=== PATIENT | male | born 1950 | race Caucasian/White ===

== ENCOUNTER 2019-04-03 10:25 | Inpatient (IN) | payer OTHER, SELFPAY ==
[2019-04-03] MEDS ORDERED: ASPIRIN 81 MG CHEWABLE TABLET ONE (10:45)
[2019-04-03 10:58] LABS: Absolute Lymphocytes (CBC) 2.1 K/uL (0.7-4.9); Basophils % 1.4 % (0-1.3); Hematocrit 45.3 % (39.6-49.0); Lymphocytes % 22.3 % (15.3-44.8); MPV 8.4 fL (7.6-11.3); RBC Red Blood Cell Count 5.15 M/uL (4.33-5.43)
[2019-04-03 11:48] LABS: Albumin 3.2 g/dL (3.4-5.0); Bilirubin Direct 0.1 mg/dL (0-0.2); Bilirubin Total 0.4 mg/dL (0.2-1.0); Potassium 4.2 mmol/L (3.5-5.1); Troponin (Emerg Dept Use Only) 0.09 ng/mL (0.0-0.045)
--- NOTE | 2019-04-03 12:05 | EKG ---
Test Date: 2019-04-03 Test Time: 10:33:18 Foundry Superintendant: ISMAEL MEASUREMENT RESULTS: Intervals: Rate: 75 LA: 224 QRSD: 90 QT: 408 QTc: 455 [place]: P: 31 LA: 224 QRS: -22 T: -6 INTERPRETIVE STATEMENTS: Sinus rhythm with sinus arrhythmia with 1st degree AV block Minimal voltage criteria for LVH, may be normal variant Borderline ECG No previous ECG available for comparison Electronically Signed On 04-03-19 12:04:24 JAVA APPLICATION DEVELOPER by Mason Hawkins
--- NOTE | 2019-04-03 12:08 | RAD REPORT ---
EXAM DESCRIPTION: Marisel Single View04/03/2019 11:17 am CLINICAL HISTORY: Chest pain COMPARISON: none FINDINGS: The lungs appear clear of acute infiltrate. The heart is borderline enlarged IMPRESSION: No acute abnormalities displayed
--- NOTE | 2019-04-03 12:50 | ER ---
Nurse's Notes [facility] Name: Fabio Castellanos Age: 69 yrs Sex: Male : 1950 Arrival Date: 04/03/2019 Time: 10:26 Bed 6 Private MD: Alen Tatum H Diagnosis: Chest pain, unspecified;Non-ST elevation (NSTEMI) myocardial infarction Presentation: 04/03 10:34 Presenting complaint: Patient states: midsternal chest pain that feels like tightness iw and cramping and dull pain in left arm started this morning, had similar episode the other day but not as bad as this one, no cardiac history, denies nausea, felt light headed. Transition of care: patient was not received from another setting of care. Onset of symptoms was April 03, 2019. Risk Assessment: Do you want to hurt yourself or someone else? Patient reports no desire to harm self or others. Initial Sepsis Screen: Does the patient meet any 2 criteria? No. Patient's initial sepsis screen is negative. Does the patient have a suspected source of infection? No. Patient's initial sepsis screen is negative. Care prior to arrival: None. 10:34 Method Of Arrival: Wheelchair iw 10:34 Acuity: DOMI 2 iw Historical: - Allergies: 10:36 No Known Allergies; iw - Home Meds: 10:36 unknown BP med [Active]; Glimepiride Oral [Active]; iw 12:47 hydrochlorothiazide 25 mg Oral tab 1 tab once daily [Active]; metformin 500 mg Oral tab em [Active]; - PMHx: 10:36 Hypertension; Diabetes - NIDDM; iw - PSHx: 10:36 left arm; iw - Immunization history:: Adult Immunizations. - Coronavirus screen:: The patient has NOT traveled to [place], [place], or [place] in the past 14 days. Proceed with normal triage process as indicated. - Social history:: Smoking status: Patient/guardian denies using tobacco. - Family history:: not pertinent. - Ebola Screening: : Patient negative for fever greater than or equal to 101.5 degrees Fahrenheit, and additional compatible Ebola Virus Disease symptoms Patient denies exposure to infectious person Patient denies travel to an Ebola-affected area in the 21 days before illness onset No symptoms or risks identified at this time. - Hospitalizations: : No recent hospitalization is reported. Screenin:33 Abuse screen: Denies threats or abuse. Nutritional screening: No deficits noted. em Tuberculosis screening: No symptoms or risk factors identified. Fall Risk None identified. Assessment: 10:33 General: Appears in no apparent distress. comfortable, Behavior is calm, cooperative. em Pain: Complains of pain in chest Pain radiates to left arm Pain began 2-3 days ago. and this morning at 0630. Neuro: Level of Consciousness is awake, alert, obeys commands, Oriented to person, place, time, situation, Appropriate for age. Cardiovascular: Denies diaphoresis, lightheadedness, shortness of breath, Capillary refill < 3 seconds Patient's skin is warm and dry. Rhythm is sinus rhythm. Respiratory: Airway is patent Respiratory effort is even, unlabored, Respiratory pattern is regular, symmetrical. GI: Patient currently denies nausea, vomiting. Derm: Skin is intact, is healthy with good turgor, Skin is pink, warm \T\ dry. Musculoskeletal: Capillary refill < 3 seconds, Range of motion: intact in all extremities. 11:30 Reassessment: Patient appears in no apparent distress at this time. Patient and/or em family updated on plan of care and expected duration. Pain level reassessed. Patient is alert, oriented x 3, equal unlabored respirations, skin warm/dry/pink. 12:29 Reassessment: Patient appears in no apparent distress at this time. Patient and/or em family updated on plan of care and expected duration. Pain level reassessed. Patient is alert, oriented x 3, equal unlabored respirations, skin warm/dry/pink. Patient states feeling better. 12:44 Reassessment: called [facility] pharmacy and spoke with Ali to get pt medication list. em 13:30 Reassessment: Patient appears in no apparent distress at this time. Patient and/or em family updated on plan of care and expected duration. Pain level reassessed. Patient is alert, oriented x 3, equal unlabored respirations, skin warm/dry/pink. Vital Signs: 10:38 BP 194 / 93; Pulse 77; Resp 18 S; Pulse Ox 97% on R/A; iw 11:01 BP 173 / 86; Pulse 67; Resp 18; Pulse Ox 99% on R/A; em 12:29 BP 166 / 80; Pulse 66; Resp 18; Pulse Ox 99% on R/A; em 14:00 BP 170 / 82; Pulse 71; Resp 18; Pulse Ox 99% on R/A; em ED Course: 10:26 Patient arrived in ED. mr 10:26 Rozina TatumStanislavAlex is Private Physician. mr 10:28 Neil Rios, DANIEL is Primary Nurse. em 10:30 Alfredito Green MD is Attending Physician. rn 10:33 EKG done, by ED staff, reviewed by Alfredito Green MD. em 10:33 Patient has correct armband on for positive identification. Placed in gown. Bed in low em position. Call light in reach. Side rails up X2. 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 Pulse ox on. NIBP on. 10:36 Triage completed. iw 10:36 Patient maintains SpO2 saturation greater than 95% on room air. em 10:38 Arm band placed on. iw 10:53 Initial lab(s) drawn, by me, sent to lab. Inserted saline lock: 20 gauge in left em antecubital area, using aseptic technique. Blood collected. 11:14 Lab(s) recollected, by me, sent to lab. 3 12:48 Luana Jimenez MD is Hospitalizing Provider. rn 14:21 No provider procedures requiring assistance completed. Patient admitted, IV remains in ph place. Administered Medications: 11:05 Drug: Aspirin Chewable Tablet 324 mg Route: PO; em 11:13 Follow up: Response: No adverse reaction em Outcome: 12:48 Decision to Hospitalize by Provider. rn 14:33 Admitted to Tele accompanied by tech, via wheelchair, room 423, with chart, Report em called to DANIEL Craven 14:33 Condition: good 14:33 Instructed on the need for admit, Demonstrated understanding of instructions. 14:34 Patient left the ED. ph Signatures: Shey Escalante mr Neil Rios, DANIEL SANCHEZ Tosin Liang RN RN Alfredito Green MD MD rn Hall, Patricia, RN RN Shefali Jones count includes the [facility]
--- NOTE | 2019-04-03 12:52 | EDPHYS ---
Physician Documentation [facility] Name: Fabio Castellanos Age: 69 yrs Sex: Male : 1950 Arrival Date: 04/03/2019 Time: 10:26 Bed 6 Private MD: Alen Tatum H ED Physician Alfredito Green HPI: 04/03 11:36 This 69 yrs old Male presents to ER via Wheelchair with complaints of Chest rn Pain. 11:36 The patient or guardian reports chest pain that is located primarily in the substernal rn area. Onset: today. The pain radiates to the left arm. The chest pain is described as aching, dull. Duration: The patient or guardian reports a single episode. Modifying factors: The symptoms are alleviated by nothing. the symptoms are aggravated by exertion. Severity of pain: At its worst the pain was moderate in the emergency department the pain has improved. The patient has experienced a previous episode. Reports chest pain, began a few hours prior to arrival, no trauma, no fever/cough, + radiates to left arm. No nausea/vomiting/diaphoresis. No previous KS or stress test. Had similar but shorter lasting pain 2 days ago.. Historical: - Allergies: 10:36 No Known Allergies; iw - Home Meds: 10:36 unknown BP med [Active]; Glimepiride Oral [Active]; iw 12:47 hydrochlorothiazide 25 mg Oral tab 1 tab once daily [Active]; metformin 500 mg Oral tab em [Active]; - PMHx: 10:36 Hypertension; Diabetes - NIDDM; iw - PSHx: 10:36 left arm; iw - Immunization history:: Adult Immunizations. - Coronavirus screen:: The patient has NOT traveled to [place], [place], or [place] in the past 14 days. Proceed with normal triage process as indicated. - Social history:: Smoking status: Patient/guardian denies using tobacco. - Family history:: not pertinent. - Ebola Screening: : Patient negative for fever greater than or equal to 101.5 degrees Fahrenheit, and additional compatible Ebola Virus Disease symptoms Patient denies exposure to infectious person Patient denies travel to an Ebola-affected area in the 21 days before illness onset No symptoms or risks identified at this time. - Hospitalizations: : No recent hospitalization is reported. ROS: 11:36 Constitutional: Negative for fever, chills, and weight loss, Eyes: Negative for injury, rn pain, redness, and discharge, Neck: Negative for injury, pain, and swelling, Cardiovascular: Negative for palpitations, and edema, Respiratory: Negative for shortness of breath, cough, wheezing, and pleuritic chest pain, Abdomen/GI: Negative for abdominal pain, nausea, vomiting, diarrhea, and constipation, MS/Extremity: Negative for injury and deformity, Skin: Negative for injury, rash, and discoloration, Neuro: Negative for headache, weakness, numbness, tingling, and seizure. Exam: 10:39 ECG was reviewed by the Attending Physician. rn 11:36 Constitutional: This is a well developed, well nourished patient who is awake, alert, rn and in no acute distress. Head/Face: Normocephalic, atraumatic. ENT: MMM Cardiovascular: Regular rate and rhythm. No pulse deficits. Respiratory: Clear bilateral breath sounds. No increased work of breathing, no retractions or nasal flaring. Abdomen/GI: soft, non-tender Skin: Warm, dry MS/ Extremity: Pulses equal, no cyanosis. Neurovascular intact. Full, normal range of motion. Equal circumference. Neuro: Awake and alert, GCS 15, oriented to person, place, time, and situation. Cranial nerves II-XII grossly intact. Motor strength 5/5 in all extremities. Sensory grossly intact. Vital Signs: 10:38 BP 194 / 93; Pulse 77; Resp 18 S; Pulse Ox 97% on R/A; iw 11:01 BP 173 / 86; Pulse 67; Resp 18; Pulse Ox 99% on R/A; em 12:29 BP 166 / 80; Pulse 66; Resp 18; Pulse Ox 99% on R/A; em 14:00 BP 170 / 82; Pulse 71; Resp 18; Pulse Ox 99% on R/A; em MDM: 10:30 Patient medically screened. rn 12:29 Differential diagnosis: acute myocardial infarction, coronary artery disease rn costochondritis, pleurisy, stable angina, unstable angina. The patient was given aspirin in the Emergency Department. Data reviewed: vital signs, nurses notes, lab test result(s), EKG, radiologic studies, plain films, and as a result, I will admit patient. 12:38 Counseling: I had a detailed discussion with the patient and/or guardian regarding: the rn historical points, exam findings, and any diagnostic results supporting the discharge/admit diagnosis, lab results, radiology results, the need for further work-up and treatment in the hospital. Response to treatment: the patient's symptoms have markedly improved after treatment, the patient's condition has returned to base line, the patient is now symptom free, and as a result, I will admit patient. Admission orders: after a detailed discussion of the patient's condition and case, the admit orders are written by me. ED course: Pt pain free, trop mild elevated, will admit for NSTEMI.. 12:47 ED course: Trop mild elevated, will admit to Salma Jimenez for cardiology consultation and rn cath.. 04/03 10:39 Order name: Basic Metabolic Panel rn 04/03 10:39 Order name: CBC with Diff rn 04/03 10:39 Order name: LFT's rn 04/03 10:39 Order name: NT PRO-BNP rn 04/03 10:39 Order name: Troponin (emerg Dept Use Only) rn 04/03 11:05 Order name: CBC with Automated Diff; Complete Time: 12:04 EDMS 04/03 10:39 Order name: XRAY Chest (1 view) rn 04/03 10:39 Order name: EKG; Complete Time: 10:40 rn 04/03 10:39 Order name: Cardiac monitoring; Complete Time: 10:45 rn 04/03 11:49 Order name: Basic Metabolic Panel; Complete Time: 12:04 EDMS 04/03 11:49 Order name: Liver (Hepatic) Function; Complete Time: 12:04 EDMS 04/03 11:49 Order name: Troponin (Emerg Dept Use Only); Complete Time: 12:04 EDMS 04/03 11:49 Order name: NT PRO-BNP; Complete Time: 12:04 EDMS 04/03 10:39 Order name: EKG - Nurse/Tech; Complete Time: 10:45 rn 04/03 10:39 Order name: IV Saline Lock; Complete Time: 11:13 rn 04/03 10:39 Order name: Labs collected and sent; Complete Time: 10:45 rn 04/03 10:39 Order name: O2 Per Protocol; Complete Time: 10:40 rn 04/03 10:39 Order name: O2 Sat Monitoring; Complete Time: 10:40 rn 04/03 11:10 Order name: Labs - recollect needed: chemistry hemolyzed; Complete Time: 11:17 em1 EC:39 Rate is 75 beats/min. Rhythm is regular. QRS [place] is Normal. CA interval is normal. QRS rn interval is normal. QT interval is normal. No Q waves. T waves are Normal. No ST changes noted. Clinical impression: NSR w/ Non-specific ST/T Changes and 1st degree heart block. Interpreted by me. Reviewed by me. Administered Medications: 11:05 Drug: Aspirin Chewable Tablet 324 mg Route: PO; em 11:13 Follow up: Response: No adverse reaction em Disposition: 04/03/19 12:48 Hospitalization ordered by Luana Jimenez for Inpatient Admission. Preliminary diagnosis are Chest pain, unspecified, Non-ST elevation (NSTEMI) myocardial infarction. - Bed requested for Telemetry/MedSurg (Inpatient). - Status is Inpatient Admission. ph - Condition is Stable. - Problem is new. - Symptoms have improved. Signatures: Dispatcher [employer] EDNeil Spence RN RN em Tosin Liang RN RN iw Alfredito Green MD MD rn Martinez, Eric em1 Yesica Peterson RN RN ph Corrections: (The following items were deleted from the chart) 13:56 12:48 Hospitalization Ordered by Luana Jimenez MD for Inpatient Admission. Preliminary em1 diagnosis is Chest pain, unspecified; Non-ST elevation (NSTEMI) myocardial infarction. Bed requested for Telemetry/MedSurg (Inpatient). Status is Inpatient Admission. Condition is Stable. Problem is new. Symptoms have improved. rn 14:34 13:56 04/03/2019 12:48 Hospitalization Ordered by Luana Jimenez MD for Inpatient ph Admission. Preliminary diagnosis is Chest pain, unspecified; Non-ST elevation (NSTEMI) myocardial infarction. Bed requested for Telemetry/MedSurg (Inpatient). Status is Inpatient Admission. Condition is Stable. Problem is new. Symptoms have improved. em1
[2019-04-03] MEDS ORDERED: NITROGLYCERIN 0.4 MG/TAB SL PRN (14:18)
[2019-04-03] MEDS ORDERED: ACETAMINOPHEN 500 MG TAB PO PRN (14:18)
[2019-04-03] MEDS ORDERED: MORPHINE 2 MG/ML SYR IV PRN (14:18)
[2019-04-03 14:39] VITALS: BMI 35.3
[2019-04-03] MEDS ORDERED: LORazepam 2 MG/ML VIAL IV PRN (14:44)
[2019-04-03] MEDS: INSULIN -REGULAR HUMAN 50 UNIT/0.5 ML ML SQ SCH ×2 (15:36→21:00)
[2019-04-03] MEDS: METOPROLOL TAR 25 MG TAB PO SCH (21:35)
[2019-04-03] MEDS: ATORVASTATIN 80 MG TAB PO SCH (21:36)
--- NOTE | 2019-04-03 21:54 | CON ---
History Of Present Illness: A 69-year-old man. Mr. Castellanos started having chest pain today. He act ually had one other episode last week, but the 1 today was more alarming and brought him to the emerg ency room where he has evidence of myocardial infarction to enzymes. There are no EKG changes and hi s pain went away when he received aspirin, oxygen, and nitroglycerin in the emergency room. The millie ent has no prior history of heart disease. He takes blood pressure medicines and has diabetes. He d oes not use tobacco. Outpatient medications are glimepiride, hydrochlorothiazide, metformin, and irb esartan. Allergies: HE HAS NO KNOWN ALLERGIES. Habits: Alcohol use minimal. No illegal drugs. Physical Examination: Measurements: 6 feet, 4 inches, 290 pounds. HEENT: Normal. Lungs: Clear. Cardiac: Normal. Abdomen: Soft. Extremities: Normal. Diagnostic Studies: EKG; LVH with minimal ST abnormality. Creatinine 1.03. Troponin 0.09 on admiss ion, 0.33 later. At 10 o'clock tonight a third enzyme will be drawn. No doubt it will be even highe r. Impression: The patient has had a non-ST elevation myocardial infarction. I have recommended to the patient that he undergo cardiac catheterization, possible stenting. The patient seemed to understan d the discussion. His family was there as well. He agrees to proceed. We will hold any further [place] enox so that we can do a cardiac cath. We will make him n.p.o. We will ask him to sign a consent form and schedule a cardiac cath and possible stent for tomorrow. MARCIAL Voice ID: [id number] Report ID: [id number]
--- NOTE | 2019-04-04 00:54 | HP ---
Date of Admission: 04/03/2019 [place] Assembler: Dr. Hawkins with Cardiology. Primary Care Physician: Dr. Tatum. Chief Complaint: Chest pain. History Of Present Illness: Patient is a 69-year-old male with past medical history of hypertension, hyperlipidemia, diabetes, who was in his usual state of health until 2 days prior to admission when the patient had sudden onset of left-sided chest pain radiating to his left arm and the back. Patien t does report some nausea, but no vomiting, palpitations, or diaphoresis. Patient took some ibuprofe n, which was mainly for his ankle sprain 3 weeks ago; however, helped his symptoms. This pain was in termittent, but progressively worsening and moderate intensity. Therefore, patient came into the ER for further evaluation. His workup revealed a troponin level of 0.09. EKG did not show any acute ST elevation. White blood cell count was normal. His chest x-ray was clear. Patient was then referre d for admission. When seen in the ER, he was awake, alert, and oriented x3. He stated he felt bright r after taking the aspirin. Past Medical History: Hypertension; hyperlipidemia; diabetes mellitus type 2, non-insulin requiring. Surgical History: Patient had trauma to the left arm and had wrist surgery. Allergies: NO KNOWN DRUG ALLERGIES. Medications: List reviewed. Social History: Patient is , has a son. Patient denies any tobacco use. Does drink alcohol pretty regularly, has 1-6 beers a day, has been drinking for several decades. Denies going into with drawals if stops. No illicit drug use. Family History: Mother of heart attack at the age of 85. Dad of heart attack at th e age of 61. Review of Systems: 10-point systems reviewed, negative except as per HPI. Physical Examination: Vital Signs: Blood pressure 194/93, pulse 77, respirations 18, O2 97% on room air. General: Awake, alert, oriented x3, in mild distress, obese male, ill appearing. HEENT: Normocephalic, atraumatic. PERRLA. EOMI. Moist mucous membranes. Oropharynx is clear. No rmal dentition. Conjunctivae are anicteric. Neck: Supple. No JVD. Trachea midline. CV: S1, S2. Regular rate and rhythm. Peripheral pulses present. Respiratory: Moving air well bilaterally. No wheezing or stridor. No use of accessory muscles. Gastrointestinal: Abdomen is soft, nontender, nondistended. Positive bowel sounds. No guarding or rigidity. Extremities: No clubbing, cyanosis. Patient has edema of the left ankle. No calf tenderness. Neuro: Cranial nerves 2 through 12 intact grossly. No focal neurological deficit. Speech is normal . Strength is symmetric in bilateral upper and lower extremities. Sensation intact to light touch. Skin: No rashes. Normal skin turgor. Musculoskeletal: Decreased range of motion and pain with range of motion of the left ankle. Laboratory Data: WBC 9.5, H and H 15.1 and 45.3, platelets 243. Sodium 140, potassium 4.2, chloride 108, CO2 of 27, BUN 23, creatinine 1.03, glucose 169, calcium 8.5. Troponin 0.09. BNP 243. Albumi n 3.2. Chest x-ray shows no acute cardiopulmonary process. Heart is borderline enlarged. EKG; sinu s rhythm with sinus arrhythmia, first-degree AV block, rate of 75, minimal voltage criteria for LVH, maybe normal variant. No previous EKG for comparison. Assessment: 69-year-old male with: 1.Non-ST segment elevation myocardial infarction. Patient had improvement with pain with aspirin. We will start on chest pain guidelines, aspirin, statin, beta-gibran, NAKUL inhibitor. We will start on Lovenox 1 mg/kg q.12 hours. Consult Cardiology. Obtain echocardiogram and lipid panel. Serial c ardiac enzymes and EKG. Patient has multiple risk factors including hypertension, hyperlipidemia, di abetes, obesity. Has strong family history. 2.Diabetes mellitus type 2, non-insulin requiring with hyperglycemia. We will start on sliding scal e insulin and monitor blood glucose levels. 3.Essential hypertension, not well controlled. Blood pressure is 190 systolic. We will continue wi th home medications as appropriate and monitor. 4.Mixed hyperlipidemia. We will check lipid panel. Continue high-dose statin. 5.Alcohol dependence. Patient drinks about 1-6 beers per day. We will start on multivitamins. Arie ce on Ativan p.r.n. for alcohol withdrawal. Use [facility] protocol for monitoring signs of withdrawal. 6.Obesity, body mass index 35. 7.Deep venous thrombosis prophylaxis. Lovenox. Plan: Admit patient to Med/Surg, place as inpatient. Length of stay greater than 2 midnights. ALMA Voice ID: [id number]
[2019-04-04 04:43] LABS: Absolute Lymphocytes (CBC) 2.9 K/uL (0.7-4.9); Basophils % 0.9 % (0-1.3); Hematocrit 42.2 % (39.6-49.0); Lymphocytes % 31.7 % (15.3-44.8); MPV 7.7 fL (7.6-11.3); RBC Red Blood Cell Count 4.78 M/uL (4.33-5.43)
[2019-04-04 04:57] LABS: Potassium 4.2 mmol/L (3.5-5.1)
[2019-04-04] MEDS ORDERED: NA CHLORIDE 0.9% 1,000 ML ONE (05:31)
[2019-04-04] MEDS: IRBESARTAN 150 MG TAB PO SCH (05:54)
[2019-04-04] MEDS: ASPIRIN EC 81 MG TAB PO SCH (05:54)
[2019-04-04] MEDS: METOPROLOL TAR 25 MG TAB PO SCH ×2 (05:55→21:24)
[2019-04-04] MEDS ORDERED: HEPA 1000U/500MLS 2,000 UNIT/1,000 ML BAG IV ONE (07:16)
[2019-04-04] MEDS ORDERED: LIDOCAINE 1% 20 ML MDV ONE (07:16)
[2019-04-04] MEDS: INSULIN -REGULAR HUMAN 50 UNIT/0.5 ML ML SQ SCH ×4 (07:30→21:00)
[2019-04-04] MEDS: GLIMEPIRIDE 2 MG TABLET PO SCH ×3 (08:00→16:55)
[2019-04-04] MEDS: THIAMINE HCL 100 MG TABLET PO SCH (08:50)
[2019-04-04] MEDS: FOLIC ACID 1 MG TABLET PO SCH (08:51)
[2019-04-04] MEDS ORDERED: IRBESARTAN PO SCH (09:00)
[2019-04-04] MEDS ORDERED: lisinopriL 10 MG TAB PO SCH (09:00)
--- NOTE | 2019-04-04 09:22 | ECHO ---
HEIGHT: 6 ft 4 in WEIGHT: 290 lb 0 oz DATE OF STUDY: 04/04/[address]: Luana Jimenez MD 2-DIMENSIONAL: YES M.MODE: YES DOPPLER: YES COLOR FLOW: YES TDS: YES PORTABLE: DEFINITY: BUBBLE STUDY: DIAGNOSIS: NSTEMI CARDIAC HISTORY: CATHERIZATION: NO SURGERY: NO PROSTHETIC VALVE: NO PACEMAKER: NO MEASUREMENTS (cm) DIASTOLIC (NORMALS) SYSTOLIC (NORMALS) IVSd 1.5 (0.6-1.2) LA Diam 3.8 (1.9-4.0) LVEF 55% LVIDd 4.2 (3.5-5.7) LVIDs 30 (2.0-3.5) %FS 28% LVPWd 1.4 (0.6-1.2) Ao Diam 4.4 (2.0-3.7) 2 DIMENSIONAL ASSESSMENT: RIGHT ATRIUM: NORMAL LEFT ATRIUM: NORMAL RIGHT VENTRICLE: NORMAL LEFT VENTRICLE: NORMAL TRICUSPID VALVE: NORMAL MITRAL VALVE: NORMAL PULMONIC VALVE: NORMAL AORTIC VALVE: NORMAL PERICARDIAL EFFUSION: NONE AORTIC ROOT: NORMAL LEFT VENTRICULAR WALL MOTION: NORMAL DOPPLER/COLOR FLOW: NORMAL COMMENTS: NORMAL 2-DIMENSIONAL ECHOCARDIOGRAM WITH DOPPLER. TECHNOLOGIST: DAPHNIE DICKENS
[2019-04-04] MEDS ORDERED: HEPARIN 5000 UNIT/ML 1 ML VIAL ONE (13:49)
[2019-04-04] MEDS ORDERED: FENTANYL CITR 100 MCG/2 ML ONE (13:49)
[2019-04-04] MEDS ORDERED: MIDAZOLAM HCL 2 MG/2 ML INJ ONE (13:49)
[2019-04-04] MEDS ORDERED: NA CHLORIDE 0.9% 0 ML ONE (13:50)
[2019-04-04] MEDS ORDERED: NITROGLYCERIN/D5W 25 MG/250 ML BTL IV ONE (13:50)
[2019-04-04] MEDS ORDERED: ATROPINE SULF 1 MG/10 ML SYR IV ONE (13:50)
[2019-04-04] MEDS ORDERED: NITROGLYCERIN 100 MCG/ML SYR (for cath lab use only) IV ONE (13:50)
[2019-04-04] MEDS ORDERED: NICARDIPINE HCL 25 MG/10 ML IV ONE (13:50)
[2019-04-04] MEDS ORDERED: AMLODIPINE 5 MG TAB PO ONE ×2 (14:45→16:00)
--- NOTE | 2019-04-04 16:10 | PN ---
Date of Progress Note: 04/04/2019 Subjective: Patient is seen and examined. Chart reviewed and case discussed with Dr. Hawkins. Lexy rossi is going for heart catheterization today. States that his chest pain is significantly improved. at the bedside. Treatment plan explained and all questions answered. Medications: List reviewed. Physical Examination: Vital Signs: Temperature 97.2, heart rate 53, blood pressure 164/86, respirations 16, O2 of 97% on r oom air. General: Awake, alert, and oriented x3. Elderly male, obese, in some mild distress. CV: S1, S2. Regular rate and rhythm. Peripheral pulses present. Respiratory: Moving air well bilaterally. Abdomen: Soft, nontender, nondistended. Positive bowel sounds. Extremities: No clubbing, cyanosis, or edema. Neurologic: Nonfocal. Laboratory Data: Sodium 142, potassium 4.2, chloride 109, CO2 of 27, BUN 19, creatinine 0.96, glucos e 89, calcium 8.7. Troponin 0.33, 1.17. Triglycerides 301, cholesterol 235, LDL 144, HDL 31. WBC 9 .1, H and H 13.9 and 42.2, platelets 230, neutrophils 54%. Echocardiogram shows EF of 55%. Assessment And Plan: 69-year-old male with: 1.Cxe-DC-bynzohrfl myocardial infarction. Continue with chest pain guidelines, aspirin, statin, bet a-gibran, and NAKUL inhibitor. Going for cardiac catheterization today. Appreciate Dr. Hawkins' input . 2.Diabetes mellitus type 2, [id number] with hyperglycemia. Continue sliding scale insuli n. Monitor blood glucose levels. 3.Essential hypertension not well controlled. Continue with medications. 4.Mixed hyperlipidemia. Cholesterol and triglycerides are severely elevated. Patient has been coun seled. Continue high-dose statin. 5.Alcohol dependence. Patient is on multivitamins. Continue Ativan p.r.n. for alcohol withdrawal. Use [facility] protocol to monitor for signs of withdrawal. 6.Obesity, BMI of 35. 7.Deep venous thrombosis prophylaxis with Lovenox. SA/MODL Voice ID: [id number] Report ID: [id number]
[2019-04-04] MEDS: ATORVASTATIN 80 MG TAB PO SCH (21:23)
--- NOTE | 2019-04-05 01:47 | OP ---
Surgeon: Mason Hawkins MD Procedure: Left heart catheterization, coronary left ventricular angiography. Findings: Patient has a totally occluded right coronary artery about a cm from the ostium. The total occlusion distance where it looks like it is full of calcified solid material is about 4 cm. The distal right fills by collaterals from the left. Regarding the left coronary artery, the circumflex is a small vessel, gives probably 10% to 12% of the blood flow to the left ventricular myocardium. It does not supply the collaterals to the right. The proximal LAD is free of disease. At the first diagonal, so technically still the proximal LAD, there is a 90% stenosis. It looks complicated, very short, and it is only visible on 1 view and this may be the culprit lesion. I suspect his right coronary occlusion is chronic. His left ventricular ejection fraction is 65%, left ventricular end-diastolic pressure is elevated at 21 mmHg, and he has systolic hypertension, his blood pressure is 167/67, and the recommendation is that he has bypass surgery to bypass the LAD and the right coronary. Procedure In Detail: The patient had evidence of a non-ST elevation ME. He was brought to the cardiac roving tester laboratory fasting, sedated with Versed and fentanyl, prepared and draped in usual sterile fashion. Right radial approach was used. The right radial artery was entered with a 21-gauge needle, cannulated with a 0.021 inch diameter guidewire. A 5/6-Kiswahili radial sheath by [employer] was placed. Introducer and wire were removed. The sheath was flushed. Radial cocktail was given consisting of nicardipine, heparin, nitroglycerin. A TIG catheter was guided into the ascending aorta. We used a TIG catheter to angiogram right and left coronaries and left ventricle. At the end of the procedure, the catheter was withdrawn over a wire. The sheath removed and a TR band used to achieve hemostasis. There were no complications from the procedure. Estimated Blood Loss: 5 mL. Senior Process Engineer: Eugene Bueno. HAMZAH/VIOLETTA Voice ID: [id number] Report ID: [id number] MTDSon
[2019-04-05 05:52] LABS: Basophils % 0.7 % (0-1.3); Hematocrit 41.5 % (39.6-49.0); Lymphocytes % 22.6 % (15.3-44.8); MPV 7.4 fL (7.6-11.3); Potassium 4.1 mmol/L (3.5-5.1); RBC Red Blood Cell Count 4.74 M/uL (4.33-5.43)
[2019-04-05] MEDS: INSULIN -REGULAR HUMAN 50 UNIT/0.5 ML ML SQ SCH ×4 (07:30→20:24)
[2019-04-05] MEDS: AMLODIPINE 5 MG TAB PO SCH (09:00)
[2019-04-05] MEDS: IRBESARTAN 150 MG TAB PO SCH (10:20)
[2019-04-05] MEDS: METOPROLOL TAR 25 MG TAB PO SCH ×2 (10:21→20:23)
[2019-04-05] MEDS: ASPIRIN EC 81 MG TAB PO SCH (10:21)
[2019-04-05] MEDS: FOLIC ACID 1 MG TABLET PO SCH (10:21)
[2019-04-05] MEDS: GLIMEPIRIDE 2 MG TABLET PO SCH ×2 (10:21→17:24)
[2019-04-05] MEDS: THIAMINE HCL 100 MG TABLET PO SCH (10:22)
--- NOTE | 2019-04-05 11:23 | PN ---
Mr. Castellanos is doing well. No angina. He is scheduled to be transferred to [facility] to undergo bypass surgery. The transfer has not happened yet. I suspect that it will happen today or tomorrow. His bypass surgery is scheduled for SundayApr 06, with Dr. Addison. He will bypass the LAD and right coronaries. We will keep him on Lovenox between now and when he is transferred. We want to avoid using Plavix or any other P2Y12 inhibitor. HAMZAH/VIOLETTA Voice ID: [id number] Report ID: [id number] MTDD
--- NOTE | 2019-04-05 17:32 | PN ---
Date of Progress Note: 04/05/2019 Subjective: Patient is seen and examined. Chart reviewed and case discussed with RN and Dr. Hawkins. Patient had a cardiac catheterization done yesterday. Has multivessel disease, LAD and right coron daniel. Dr. Hawkins's made arrangements with CT surgery at [facility] for transfer; however, unable to be done until tomorrow. Patient did have 1 episode of chest pain yesterday, improved with medicatio ns. Medications: List Reviewed. Physical Examination: Vital Signs: Temperature 97, heart rate 57, blood pressure 169/79, respirations 18, O2 of 96% on clary m air. General: Awake alert oriented x3. Obese male. BMI 35. CV: S1, S2. Respiratory: Moving air well bilaterally. No wheezing or stridor. Gastrointestinal: Abdomen is soft, nontender, nondistended. Positive bowel sounds. Extremities: No clubbing, cyanosis. Trace pedal edema. Neurologic: Nonfocal. Laboratory Data: Sodium 141, potassium 4.1, chloride 108, CO2 of 28, BUN 16, creatinine 0.92, glucos e 100, calcium 8.6. WBC 8.7, hemoglobin and hematocrit 13.6 and 41.5, platelets 210, neutrophils 63% . Assessment: A 69-year-old male with: 1.Non-ST elevation myocardial infarction. Patient is status post cardiac cath. Needs bypass surger y. Will be transferred to [facility] in a.m. Continue with chest pain guidelines, Lovenox, and with Plavix due to anticipated surgery. 2.Diabetes mellitus type 2, bcs-gvadaqf-enduskssb with hyperglycemia. Patient refused this morning. Sliding scale insulin dose counseled. 3.Essential hypertension. Continue with home medications, not well controlled. We will need to adj ust lisinopril dose. 4.Mixed hyperlipidemia. Continue high-dose statin. 5.Alcohol dependence. Ativan p.r.n. for alcohol withdrawal. 6.Obesity, BMI 35. 7.Deep venous thrombosis prophylaxis with Lovenox. Plan: Transfer to [facility] once accepted. SA/MODL Voice ID: [id number] Report ID: [id number]
[2019-04-05] MEDS: ENOXAPARIN 100 MG/ML SYR SQ SCH (20:23)
[2019-04-05] MEDS: ATORVASTATIN 80 MG TAB PO SCH (20:24)
[2019-04-06 06:26] LABS: Hematocrit 41.8 % (39.6-49.0); Lymphocytes % 24.4 % (15.3-44.8); MPV 7.5 fL (7.6-11.3); RBC Red Blood Cell Count 4.75 M/uL (4.33-5.43)
[2019-04-06] MEDS: INSULIN -REGULAR HUMAN 50 UNIT/0.5 ML ML SQ SCH ×3 (07:30→16:30)
[2019-04-06] MEDS: IRBESARTAN 150 MG TAB PO SCH (08:39)
[2019-04-06] MEDS: THIAMINE HCL 100 MG TABLET PO SCH (08:39)
[2019-04-06] MEDS: GLIMEPIRIDE 2 MG TABLET PO SCH ×2 (08:40→16:32)
[2019-04-06] MEDS: AMLODIPINE 5 MG TAB PO SCH (08:40)
[2019-04-06] MEDS: ASPIRIN EC 81 MG TAB PO SCH (08:40)
[2019-04-06] MEDS: METOPROLOL TAR 25 MG TAB PO SCH (08:40)
[2019-04-06] MEDS: FOLIC ACID 1 MG TABLET PO SCH (08:40)
[2019-04-06] MEDS: ENOXAPARIN 100 MG/ML SYR SQ SCH (09:13)
[2019-04-06 11:42] VITALS: O2SAT 97
[2019-04-06 16:31] VITALS: TEMP 97.4
[2019-04-06 17:33] VITALS: BP 150/79
--- NOTE | 2019-04-07 05:37 | DS ---
Date of Discharge: 04/06/2019 Consultants: Dr. Hawkins with Cardiology. Procedures: Heart catheterization on 04/04/2019 showing multivessel disease. Admitting Diagnoses: 1.Dea-WP-usfkmrkdn myocardial infarction. 2.Diabetes mellitus type 2 fgq-itznxqf-dceefmnbw with hyperglycemia. 3.Essential hypertension. 4.Mixed hyperlipidemia. 5.Alcohol dependence. 6.Obesity, body mass index 35. Discharge Diagnoses: 1.Nln-pm-icvostnqm myocardial infarction status post cardiac catheterization with multivessel diseas e slated for coronary artery bypass graft. 2.Diabetes mellitus type 2 cdu-yzstrwr-jrcdjlkli with hyperglycemia. 3.Essential hypertension, stable. 4.Mixed hyperlipidemia, continue statin. 5.Alcohol dependence. Continue Ativan p.r.n. 6.Obesity, body mass index 35. Hospital Course: Patient is a 69-year-old male with multiple medical conditions including hypertensi on, hyperlipidemia, diabetes, which are not well controlled, comes in with chest pain. Patient was f ound to be having an NSTEMI. Cardiac enzymes were elevated. Chest x-ray was clear. He was seen by wildland fire operations specialist, Dr. Hawkins. He was started on chest pain guidelines, full-dose Lovenox. He was taken for heart catheterization and found to have multivessel disease. His triglycerides were severely [place] vated at 301, cholesterol was 235, LDL was 144, HDL was 31. Patient was then recommended to have cor onary artery bypass graft and was referred to [facility], however, was unable to be transferred until Sunday on the day of discharge. Overall, patient did well. His pain improved. He was then transfe rred to [facility] once accepted and bed was available. Medications: As per medication reconciliation list. Diet: Diabetic diet. Activity: As tolerated. Transfer to [facility] for higher level of care for coronary artery bypass graft. Physical Examination: General: Awake, alert, oriented x3, elderly male, obese. CV: S1-S2. Respiratory: Moving air well bilaterally. Abdomen: Soft, nontender, nondistended. Positive bowel sounds. Extremities: No clubbing, cyanosis, edema. Neuro: Nonfocal. SA/MODL Voice ID: [id number] Report ID: [id number]
== END 2019-04-06 18:12 | disposition short-term general hospital (02) | DRG 281 ==
LOC: ER 10:25 → EDSEX 10:25 → ERHOLD 13:23 → 4TH 14:21
PROVIDERS: ADMIT Family Medicine; ATTEND Family Medicine
PROC: B211YZZ Fluoroscopy of Multiple Coronary Arteries using Other Contrast (ICD-10-PCS; principal; 2019-04-04)
PROC: 4A023N7 Measurement of Cardiac Sampling and Pressure, Left Heart, Percutaneous Approach (ICD-10-PCS; 2019-04-04)
DX: I21.4 Non-ST elevation (NSTEMI) myocardial infarction (principal); F10.230 Alcohol dependence with withdrawal, uncomplicated; I10 Essential (primary) hypertension; E11.65 Type 2 diabetes mellitus with hyperglycemia; E78.2 Mixed hyperlipidemia; E66.9 Obesity, unspecified; Z68.35 Body mass index [BMI] 35.0-35.9, adult
CPT/HCPCS: 36415; 71045; 80048; 80061; 80076; 82947; 83036; 83880; 84484; 85025; 93005; 93306; 93458; 94760; 99285; C1893; J0583; J1644; J1650; J2250; J2270; J3010; J7030